=== PATIENT | female | born 1975 | race Caucasian/White ===

== ENCOUNTER 2019-09-06 16:30 | Emergency (ER) | payer OTHER, MEDICARE ==
[~2019-09-06] VITALS: Ht 165.1 cm; Wt 73.5 kg
[2019-09-06] MEDS ORDERED: DEXAMETHASONE SOD PHOS 10 MG/1 ML VIAL IM ONE (17:30)
[2019-09-06] MEDS ORDERED: HYDROCODONE/APAP 7.5MG-325MG 1 EA TAB PO PRN (17:30)
--- NOTE | 2019-09-06 19:06 | Diagnostic Imaging Report ---
Lumbar Spine Radiographs: 6 views HISTORY: Pain COMPARISON: None available. DISCUSSION: There are five non-rib bearing lumbar vertebral bodies. Levoscoliosis of the lumbar spine status post extensive fixation of the imaged thoracolumbar spine with rods and transpedicular screws. There is also fixation of L5-S1 and right sacroiliac joint. Fragment of a screw projected on the left ilium just inferior to the sacroiliac joint. Multilevel degenerative disc disease and spondylosis particularly at L5-S1. IMPRESSION: Levoscoliosis of the lumbar spine status post extensive fixation of the imaged thoracolumbar spine with rods and transpedicular screws. Signed by: Dr. Dionte Wilson M.D. on 09/06/2019 7:04 PM
[2019-09-07 05:21] VITALS: BP 134/92
== END 2019-09-06 20:00 | disposition home or self-care (01) ==
LOC: ER 16:30
DX: M54.5 Low back pain (principal); G89.29 Other chronic pain; Z98.84 Bariatric surgery status
CPT/HCPCS: 72110; 99283; J1100